=== PATIENT | female | born 2000 | race Caucasian/White ===

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

== ENCOUNTER 2020-09-21 23:25 | Emergency (ER) | payer OTHER ==
[~2020-09-21] VITALS: Ht 167.6 cm; Wt 83.5 kg
[2020-09-21 23:33] VITALS: BP 135/68
--- NOTE | 2020-09-21 23:37 | NUR ---
PATIENT AMBUALTED TO RESTROOM AND GIVEN UA CUP.
[2020-09-22] MEDS ORDERED: NAPR-54 PO (01:01)
--- NOTE | 2020-09-22 01:06 | NUR ---
Patient evaluted by Dr. Ennis, no nursing care provided. Patient given discharge instructions by Dr. Ennis. Rx of Naproxen given. Medication administration and possible side effects explained by Dr. Ennis. All questions asked and answered prior to discharge.
== END 2020-09-22 01:06 | disposition home or self-care (01) ==
LOC: MED 23:25
DX: S43.401A Unspecified sprain of right shoulder joint, initial encounter (principal); Z79.899 Other long term (current) drug therapy; V89.2XXA Person injured in unspecified motor-vehicle accident, traffic, initial encounter; Y93.89 Activity, other specified; Y92.89 Other specified places as the place of occurrence of the external cause; Y99.8 Other external cause status
CPT/HCPCS: 99282